=== PATIENT | male | born 1955 | race Caucasian/White ===

== ENCOUNTER 2019-02-10 05:28 | Inpatient (IN) | payer OTHER ==
[2019-02-10] MEDS ORDERED: CEFAZOLIN 2 GM/50 ML (PMX) 50 ML IVPB (06:00)
[2019-02-10] MEDS: SOD CHLORIDE 0.9% 1,000 ML IV ×3 (06:30→20:16)
[2019-02-10] MEDS ORDERED: ROCURONIUM 50 MG INJ (08:20)
[2019-02-10] MEDS ORDERED: MIDAZOLAM 1 MG/ML 2 ML INJ (08:22)
[2019-02-10] MEDS: POLYMYXIN/BACITRACIN 1L IRRIG (09:00)
[2019-02-10] MEDS: BUPIVACAINE 0.25% (MPF) 30 ML INJ (09:42)
[2019-02-10] MEDS ORDERED: ETOMIDATE 20 MG INJ (09:45)
[2019-02-10] MEDS ORDERED: LIDOCAINE 2% (SDV) 5 ML INJ (09:45)
[2019-02-10] MEDS ORDERED: CEFAZOLIN 1 GM INJ (09:46)
[2019-02-10] MEDS ORDERED: PROPOFOL 20 ML (09:46)
[2019-02-10] MEDS ORDERED: GLYCOPYRROLATE 0.4 MG INJ (09:49)
[2019-02-10] MEDS ORDERED: NEOSTIGMINE 3 MG/3 ML SYRINGE (09:49)
[2019-02-10] MEDS ORDERED: ONDANSETRON 4 MG INJ (09:50)
[2019-02-10] MEDS ORDERED: ONDANSETRON 4 MG INJ IV (10:30)
[2019-02-10] MEDS ORDERED: DIPHENHYDRAMINE 50 MG INJ IV (10:30)
[2019-02-10] MEDS ORDERED: HYDROmorphONE 1 MG/5 ML IV SYRINGE IV (10:30)
[2019-02-10] MEDS ORDERED: METOCLOPRAMIDE 10 MG INJ IV (10:30)
[2019-02-10] MEDS ORDERED: FENTAnyl 50 MCG/ML VIAL IV (10:30)
[2019-02-10] MEDS ORDERED: hydrALAzine 20 MG INJ IV (10:30)
[2019-02-10] MEDS ORDERED: NALOXONE (0.4 MG/ML) INJ IV (10:30)
[2019-02-10] MEDS ORDERED: LABETALOL HCL 20MG INJ IV (10:30)
[2019-02-10] MEDS: MEPERIDINE 25 MG INJ IV (10:45)
[2019-02-10 10:47] LABS: ADD MAN DIFF? NO
[2019-02-10 10:49] LABS: WHITE BLOOD COUNT 7.1 10^3/ul (4.8-10.8)
[2019-02-10 10:49] LABS: BASOPHIL # 0.1 10^3/ul (0.0-0.1); EOSINOPHILS # 0.2 10^3/ul (0.0-0.5); EOSINOPHILS % 3.4 % (0.0-7.0); HEMATOCRIT 39.4 % (42.0-52.0); HEMOGLOBIN 13.3 g/dl (14.0-18.0); LYMPHOCYTES # 2.2 10^3/ul (0.8-2.9); LYMPHOCYTES % 30.4 % (15.0-51.0); MEAN CORPUSCULAR HEMOGLOBIN 32.4 pg (29.0-33.0); MEAN CORPUSCULAR HGB CONC 33.8 g/dl (32.0-37.0); MEAN CORPUSCULAR VOLUME 96.1 fl (82.0-101.0); MEAN PLATELET VOLUME 8.7 fl (7.4-10.4); MONOCYTE # 0.8 10^3/ul (0.3-0.9); MONOCYTES % 10.9 % (0.0-11.0); NEUTROPHIL # 3.9 10^3/ul (1.6-7.5); PLATELET COUNT 365 10^3/UL (140-415); RED CELL DISTRIBUTION WIDTH 12.9 % (11.5-14.5)
[2019-02-10] MEDS: HYDROmorphONE 1 MG/5 ML IV SYRINGE IV ×2 (10:50→11:13)
[2019-02-10] MEDS: HYDROmorphONE 0.2 MG/ML PCA IV (11:03)
[2019-02-10 11:08] LABS: ALANINE AMINOTRANSFERASE 35 IU/L (13-69); ALBUMIN 3.9 g/dl (3.3-4.9); ALBUMIN/GLOBULIN RATIO 1.39; ALKALINE PHOSPHATASE 78 IU/L (42-121); ANION GAP 9 (5-13); ASPARTATE AMINO TRANSFERASE 31 IU/L (15-46); BILIRUBIN,INDIRECT 0.5 mg/dl (0-1.1); BILIRUBIN,TOTAL 0.5 mg/dl (0.2-1.3); BLOOD UREA NITROGEN 14 mg/dl (7-20); CALCIUM 8.6 mg/dl (8.4-10.2); CARBON DIOXIDE 24 mmol/L (21-31); CHLORIDE 110 mmol/L (97-110); CREATININE 0.89 mg/dl (0.61-1.24); Estimated GFR > 60 mL/min (>60); GLUCOSE 141 mg/dl (70-220); POTASSIUM 4.4 mmol/L (3.5-5.1); SODIUM 143 mmol/L (135-144); TOTAL PROTEIN 6.7 g/dl (6.1-8.1)
[2019-02-10] MEDS: CEFAZOLIN 2 GM/50 ML (PMX) 50 ML IVPB ×2 (13:01→20:17)
[2019-02-10] MEDS: ONDANSETRON 4 MG INJ IV (21:42)
[2019-02-11] MEDS: hydrALAzine 20 MG INJ IV ×2 (02:57→11:43)
[2019-02-11] MEDS: CEFAZOLIN 2 GM/50 ML (PMX) 50 ML IVPB (04:17)
[2019-02-11 06:00] LABS: ADD MAN DIFF? NO
[2019-02-11] MEDS: SOD CHLORIDE 0.9% 1,000 ML IV ×2 (06:08→08:55)
[2019-02-11 06:21] LABS: WHITE BLOOD COUNT 11.3 10^3/ul (4.8-10.8)
[2019-02-11 06:21] LABS: BASOPHILS % 0.3 % (0.0-2.0); EOSINOPHILS % 0.2 % (0.0-7.0); HEMATOCRIT 39.6 % (42.0-52.0); HEMOGLOBIN 13.4 g/dl (14.0-18.0); LYMPHOCYTES # 1.1 10^3/ul (0.8-2.9); LYMPHOCYTES % 9.6 % (15.0-51.0); MEAN CORPUSCULAR HEMOGLOBIN 32.6 pg (29.0-33.0); MEAN CORPUSCULAR HGB CONC 33.8 g/dl (32.0-37.0); MEAN CORPUSCULAR VOLUME 96.4 fl (82.0-101.0); MEAN PLATELET VOLUME 9.1 fl (7.4-10.4); MONOCYTES % 8.9 % (0.0-11.0); NEUTROPHIL # 9.1 10^3/ul (1.6-7.5); NEUTROPHILS % 80.7 % (39.0-77.0); PLATELET COUNT 345 10^3/UL (140-415); RED BLOOD COUNT 4.11 10^6/ul (4.70-6.10); RED CELL DISTRIBUTION WIDTH 13.1 % (11.5-14.5)
[2019-02-11 06:47] LABS: ALANINE AMINOTRANSFERASE 30 IU/L (13-69); ALBUMIN 3.9 g/dl (3.3-4.9); ALBUMIN/GLOBULIN RATIO 1.25; ALKALINE PHOSPHATASE 89 IU/L (42-121); ANION GAP 7 (5-13); ASPARTATE AMINO TRANSFERASE 27 IU/L (15-46); BILIRUBIN,INDIRECT 0.6 mg/dl (0-1.1); BILIRUBIN,TOTAL 0.6 mg/dl (0.2-1.3); BLOOD UREA NITROGEN 8 mg/dl (7-20); CALCIUM 8.3 mg/dl (8.4-10.2); CARBON DIOXIDE 27 mmol/L (21-31); CHLORIDE 105 mmol/L (97-110); Estimated GFR > 60 mL/min (>60); GLUCOSE 122 mg/dl (70-220); POTASSIUM 4.2 mmol/L (3.5-5.1); SODIUM 139 mmol/L (135-144)
[2019-02-11] MEDS: AMLODIPINE 10 MG TAB PO (08:48)
[2019-02-11] MEDS: DOXEPIN 25 MG CAP PO (08:49)
[2019-02-11] MEDS: NIFEdipine (XL) 60 MG TAB PO (08:50)
[2019-02-11] MEDS: DEXTROSE 5%-0.45% NACL 1,000 ML IV (12:02)
[2019-02-11] MEDS: HYDROCODONE/APAP (5/325) TAB PO (18:22)
[2019-02-12] MEDS: DEXTROSE 5%-0.45% NACL 1,000 ML IV ×2 (04:14→19:28)
[2019-02-12 06:09] LABS: ADD MAN DIFF? NO
[2019-02-12 06:13] LABS: BASOPHIL # 0.1 10^3/ul (0.0-0.1); BASOPHILS % 0.4 % (0.0-2.0); EOSINOPHILS # 0.1 10^3/ul (0.0-0.5); EOSINOPHILS % 1.1 % (0.0-7.0); HEMATOCRIT 42.1 % (42.0-52.0); HEMOGLOBIN 14.1 g/dl (14.0-18.0); LYMPHOCYTES # 1.8 10^3/ul (0.8-2.9); LYMPHOCYTES % 14.5 % (15.0-51.0); MEAN CORPUSCULAR HEMOGLOBIN 32.4 pg (29.0-33.0); MEAN CORPUSCULAR HGB CONC 33.5 g/dl (32.0-37.0); MEAN CORPUSCULAR VOLUME 96.8 fl (82.0-101.0); MEAN PLATELET VOLUME 9.1 fl (7.4-10.4); MONOCYTE # 1.4 10^3/ul (0.3-0.9); MONOCYTES % 11.1 % (0.0-11.0); NEUTROPHIL # 9.1 10^3/ul (1.6-7.5); NEUTROPHILS % 72.6 % (39.0-77.0); PLATELET COUNT 379 10^3/UL (140-415); RED BLOOD COUNT 4.35 10^6/ul (4.70-6.10); RED CELL DISTRIBUTION WIDTH 13.5 % (11.5-14.5)
[2019-02-12 06:13] LABS: WHITE BLOOD COUNT 12.5 10^3/ul (4.8-10.8)
[2019-02-12 07:04] LABS: ANION GAP 7 (5-13); BLOOD UREA NITROGEN 8 mg/dl (7-20); CALCIUM 9.2 mg/dl (8.4-10.2); CARBON DIOXIDE 28 mmol/L (21-31); CHLORIDE 105 mmol/L (97-110); CREATININE 0.83 mg/dl (0.61-1.24); Estimated GFR > 60 mL/min (>60); GLUCOSE 129 mg/dl (70-220); POTASSIUM 3.9 mmol/L (3.5-5.1); SODIUM 140 mmol/L (135-144)
[2019-02-12] MEDS: DOXEPIN 25 MG CAP PO (08:13)
[2019-02-12] MEDS: AMLODIPINE 10 MG TAB PO (08:14)
[2019-02-12] MEDS: NIFEdipine (XL) 60 MG TAB PO (08:14)
[2019-02-12] MEDS: HYDROCODONE/APAP (5/325) TAB PO ×2 (08:15→15:54)
[2019-02-13] MEDS: AMLODIPINE 10 MG TAB PO (08:34)
[2019-02-13] MEDS: DOXEPIN 25 MG CAP PO (08:34)
[2019-02-13] MEDS: NIFEdipine (XL) 60 MG TAB PO (08:34)
[2019-02-13] MEDS: HYDROCODONE/APAP (5/325) TAB PO (22:16)
[2019-02-14 05:41] LABS: ADD MAN DIFF? NO
[2019-02-14 05:44] LABS: BASOPHIL # 0.1 10^3/ul (0.0-0.1); BASOPHILS % 0.9 % (0.0-2.0); EOSINOPHILS # 0.4 10^3/ul (0.0-0.5); EOSINOPHILS % 6.1 % (0.0-7.0); HEMOGLOBIN 13.2 g/dl (14.0-18.0); LYMPHOCYTES # 1.7 10^3/ul (0.8-2.9); LYMPHOCYTES % 25.2 % (15.0-51.0); MEAN CORPUSCULAR HEMOGLOBIN 32.4 pg (29.0-33.0); MEAN CORPUSCULAR HGB CONC 33.8 g/dl (32.0-37.0); MEAN CORPUSCULAR VOLUME 95.6 fl (82.0-101.0); MEAN PLATELET VOLUME 9.1 fl (7.4-10.4); MONOCYTE # 0.8 10^3/ul (0.3-0.9); MONOCYTES % 12.5 % (0.0-11.0); NEUTROPHIL # 3.7 10^3/ul (1.6-7.5); NEUTROPHILS % 54.7 % (39.0-77.0); PLATELET COUNT 368 10^3/UL (140-415); RED BLOOD COUNT 4.08 10^6/ul (4.70-6.10); RED CELL DISTRIBUTION WIDTH 12.9 % (11.5-14.5)
[2019-02-14 05:44] LABS: WHITE BLOOD COUNT 6.7 10^3/ul (4.8-10.8)
[2019-02-14 06:17] LABS: ANION GAP 6 (5-13); BLOOD UREA NITROGEN 11 mg/dl (7-20); CALCIUM 8.9 mg/dl (8.4-10.2); CARBON DIOXIDE 29 mmol/L (21-31); CHLORIDE 107 mmol/L (97-110); CREATININE 0.85 mg/dl (0.61-1.24); Estimated GFR > 60 mL/min (>60); GLUCOSE 101 mg/dl (70-220); POTASSIUM 3.9 mmol/L (3.5-5.1); SODIUM 142 mmol/L (135-144)
[2019-02-14] MEDS: NIFEdipine (XL) 60 MG TAB PO (08:41)
[2019-02-14] MEDS: DOXEPIN 25 MG CAP PO (08:41)
== END 2019-02-14 17:10 | disposition home or self-care (01) | DRG 355 ==
LOC: REC 05:28 → 2NE 11:35
PROC: 0WUF0JZ Supplement Abdominal Wall with Synthetic Substitute, Open Approach (ICD-10-PCS; principal; 2019-02-10 08:00)
PROC: 0KXL0ZZ Transfer Left Abdomen Muscle, Open Approach (ICD-10-PCS; 2019-02-10 08:00)
PROC: 0KXK0ZZ Transfer Right Abdomen Muscle, Open Approach (ICD-10-PCS; 2019-02-10 08:00)
PROC: 0JN80ZZ Release Abdomen Subcutaneous Tissue and Fascia, Open Approach (ICD-10-PCS; 2019-02-10 08:00)
DX: K43.0 Incisional hernia with obstruction, without gangrene (principal); E78.5 Hyperlipidemia, unspecified; I10 Essential (primary) hypertension; F41.9 Anxiety disorder, unspecified; K66.0 Peritoneal adhesions (postprocedural) (postinfection); G89.18 Other acute postprocedural pain; Z86.73 Personal history of transient ischemic attack (TIA), and cerebral infarction without residual deficits
CPT/HCPCS: 80048; 80053; 85025; 97161